=== PATIENT | female | born 1980 | race American Indian/Alaskan Native ===

== ENCOUNTER 2020-10-07 10:46 | Emergency (ER) | payer BC ==
[2020-10-07] MEDS ORDERED: ASPIRIN 325 MG TAB PO ONE (10:55)
--- NOTE | 2020-10-07 10:58 | Event Note ---
ED Screening Note Date of service: 10/07/20 Time: 10:58 ED Screening Note: 39-year-old -[place] female comes in with acute chest pain and elevated blood pressure. This initial assessment/diagnostic orders/clinical plan/treatment(s) is/are subject to change based on patients health status, clinical progression and re- assessment by fellow clinical providers in the ED. Further treatment and workup at subsequent clinical providers discretion. Patient/guardian urged not to elope from the ED as their condition may be serious if not clinically assessed and managed. Initial orders include: Chest pain protocol initiated.
--- NOTE | 2020-10-07 11:20 | Emergency Department Report ---
ED Chest Pain HPI - General Chief Complaint: Chest Pain Stated Complaint: HBP/CHEST PAIN Time Seen by Provider: 10/07/20 11:06 Source: patient Mode of arrival: Ambulatory Limitations: No Limitations - History of Present Illness Initial Comments: 39-year-old female, history of hypertension, presents to ED with elevated blood pressure. Patient states she was diagnosed with hypertension following the of her son 4 years ago. Patient states she was given medication at that time, has not followed up with any physicians since. Has not been on any antihypertensives since 4 years ago. Patient states on yesterday she had a headache along with some chest pain, so she took her blood pressure at home. Patient reports highest SBP was in the 180s. Patient states she had a headache at that time, which is currently resolved. Denies any dizziness, nausea, vomiting. Patient reports some chest tightening, states she is unsure if it may have been due to her anxiety. Patient denies any radiation of pain, shortness of breath, diaphoresis. Patient denies any family history of CAD. Patient denies any tobacco use. MD Complaint: chest pain -: days(s) (2) Onset: during rest Pain Location: substernal Pain Radiation: none Severity: moderate Quality: tightness Consistency: intermittent Improves With: nothing Worsens With: nothing re: denies: nausea, vomting, diaphoresis, dyspnea Other Symptoms: denies: cough, fever, leg swelling - Related Data Previous Rx's Medication Instructions Recorded Last Taken Type hydroCHLOROthiazide [HCTZ] 25 mg PO QDAY #30 tablet 10/07/20 Unknown Rx Allergies Allergy/AdvReac Type Severity Reaction Status Date / Time pollen extracts Allergy Unknown Verified 10/07/20 10:49 Heart Score - HEART Score History: Slightly suspicious EKG: Normal Age: < 45 Risk factors: 1-2 risk factors Troponin: < normal limit HEART Score: 1 ED Review of Systems ROS: Stated complaint: HBP/CHEST PAIN Other details as noted in HPI Comment: All other systems reviewed and negative Constitutional: denies: chills, fever Respiratory: denies: cough, shortness of breath Cardiovascular: chest pain Gastrointestinal: denies: nausea, vomiting Musculoskeletal: other (Denies leg pain or swelling) Neurological: headache. denies: weakness, numbness, vertigo ED Past Medical Hx - Past Medical History Previous Medical History?: Yes Hx Hypertension: Yes - Surgical History Past Surgical History?: Yes Hx Breast Surgery: Yes (Reduction) Additional Surgical History: x 1, - Medications Home Medications: Home Medications Medication Instructions Recorded Confirmed Last Taken Type hydroCHLOROthiazide [HCTZ] 25 mg PO QDAY #30 tablet 10/07/20 Unknown Rx ED Physical Exam - General Limitations: No Limitations General appearance: alert, in no apparent distress, obese - Head Head exam: Present: atraumatic, normocephalic - Eye Eye exam: Present: normal appearance, EOMI - ENT ENT exam: Present: mucous membranes moist - Neck Neck exam: Present: normal inspection - Respiratory Respiratory exam: Present: normal lung sounds bilaterally. Absent: respiratory distress - Cardiovascular Cardiovascular Exam: Present: normal rhythm, tachycardia - GI/Abdominal GI/Abdominal exam: Present: soft. Absent: distended, tenderness - Extremities Exam Extremities exam: Present: normal inspection. Absent: pedal edema, calf tenderness - Neurological Exam Neurological exam: Present: alert, oriented X3, CN II-XII intact. Absent: motor sensory deficit - Psychiatric Psychiatric exam: Present: normal affect, normal mood - Skin Skin exam: Present: warm, dry, intact, normal color ED Course Vital Signs 10/07/20 10/07/20 10/07/20 11:08 11:09 11:15 Pulse Rate 124 H 122 H 119 H Respiratory 16 13 14 Rate Blood Pressure 212/126 Blood Pressure 224/114 [Left] O2 Sat by Pulse 99 98 98 Oximetry 10/07/20 10/07/20 10/07/20 11:30 12:00 12:46 Pulse Rate 102 H 92 H Respiratory 15 11 L Rate Blood Pressure 212/126 169/116 165/94 Blood Pressure [Left] O2 Sat by Pulse 99 97 100 Oximetry 10/07/20 10/07/20 10/07/20 13:30 14:00 14:45 Pulse Rate 83 92 H 92 H Respiratory 11 L 11 L 15 Rate Blood Pressure 157/104 143/107 172/117 Blood Pressure [Left] O2 Sat by Pulse 100 99 98 Oximetry 10/07/20 15:15 Pulse Rate Respiratory Rate Blood Pressure 154/100 Blood Pressure [Left] O2 Sat by Pulse 97 Oximetry ED Medical Decision Making - Lab Data Result diagrams: 10/07/20 11:03 10/07/20 11:03 - EKG Data -: EKG Interpreted by Me EKG shows normal: sinus rhythm, axis, intervals, QRS complexes, ST-T waves Rate: tachycardia (rate 134) - EKG Data Interpretation: no acute changes - Radiology Data Radiology results: report reviewed, image reviewed - Medical Decision Making 39-year-old female, history of hypertension, noncompliant with medication, presents to ED with uncontrolled hypertension and chest pain. Patient given IV labetalol which did improve patient's blood pressure. Patient reported some chest tightness, was unclear if it was possibly secondary to her anxiety. EKG showed no acute ST changes. D-dimer was normal. Troponin negative x2. Chest x-ray unremarkable. Patient reported having a headache on yesterday, but states that has resolved. Patient has no neuro deficits on exam. She is currently feeling much better at this time. Feels comfortable with discharge home. Patient info faxed to [facility] for urgent cardiology follow-up. Return precautions given. - Differential Diagnosis Hypertensive emergency, ACS, PE Critical Care Time: Yes Critical care time in (mins) excluding proc time.: 35 Critical care attestation.: If time is entered above; I have spent that time in minutes in the direct care of this critically ill patient, excluding procedure time. Critical Care Time: 35 min ED Disposition Clinical Impression: Chest pain, Hypokalemia, Hypertensive urgency Disposition: DC- TO HOME OR SELFCARE Is pt being admited?: No Condition: Stable Instructions: Hypokalemia, Nonspecific Chest Pain, Adult, Hypertension, Adult, [id number], Chest Pain (ED) Prescriptions: hydroCHLOROthiazide [HCTZ] 25 mg PO QDAY #30 tablet Referrals: MATT GAGE MD [Primary Care Provider] - 3-5 Days [facility] [Provider Group] - 3-5 Days PATEL BULLARD MD [Staff Physician] - 3-5 Days Forms: Work/School Release Form(ED) Time of Disposition: 14:50
[2020-10-07 11:48] LABS: Basophils # (Auto) 0.1 K/mm3 (0.0-0.1); Basophils % (Auto) 0.8 % (0.0-1.8); Eosinophils # (Auto) 0.1 K/mm3 (0.0-0.4); Eosinophils % (Auto) 0.7 % (0.0-4.3); Hematocrit 38.5 % (30.3-42.9); Hemoglobin 12.5 gm/dl (10.1-14.3); Lymphocytes # (Auto) 3.3 K/mm3 (1.2-5.4); Lymphocytes % (Auto) 26.3 % (13.4-35.0); Mean Corpuscular HGB Conc 32 % (30-34); Mean Corpuscular Volume 79 fl (79-97); Monocytes # (Auto) 0.8 K/mm3 (0.0-0.8); Monocytes % (Auto) 6.4 % (0.0-7.3); Platelet Count 375 K/mm3 (140-440); Red Blood Count 4.89 M/mm3 (3.65-5.03); Red Cell Distribution Width 16.4 % (13.2-15.2)
[2020-10-07 11:57] LABS: INR 0.94 (0.87-1.13)
[2020-10-07 11:58] LABS: Partial Thromboplastin Time 28.5 Sec. (24.2-36.6)
[2020-10-07 12:08] LABS: Alanine Aminotransferase 21 units/L (7-56); Albumin 4.4 g/dL (3.9-5); BUN/Creatinine Ratio 8; Blood Urea Nitrogen 8 mg/dL (7-17); Calcium 9.2 mg/dL (8.4-10.2); Hemolysis Index 6
--- NOTE | 2020-10-07 12:26 | XRay Report ---
CHEST 1 VIEW INDICATION / CLINICAL INFORMATION: Chest Pain. COMPARISON: None available. FINDINGS: SUPPORT DEVICES: None. HEART / MEDIASTINUM: No significant abnormality. LUNGS / PLEURA: No significant pulmonary or pleural abnormality. No pneumothorax. ADDITIONAL FINDINGS: No significant additional findings. IMPRESSION: 1. No acute findings. Signer Name: Alma Isbell MD Signed: 10/07/2020 12:22 PM Workstation Name: [id number]
[2020-10-07] MEDS ORDERED: POTASSIUM CHLORIDE ER 20 MEQ TAB PO ONE (12:29)
[2020-10-07 13:15] LABS: Bilirubin,Urine NEG (Negative); Blood,Urine NEG (Negative); Color,Urine Straw (Yellow); Mucus,Urine FEW /HPF; Urobilinogen,Urine < 2.0 mg/dL (<2.0)
[2020-10-07 13:34] LABS: Amphetamine Screen,Urine Negative; Benzodiazepines Screen,Urine Negative; Cocaine Screen,Urine Negative; Methadone Screen,Urine Negative; Opiate Screen,Urine Negative
[2020-10-07 13:49] LABS: Cannabinoid Screen,Urine Positive
[2020-10-07 15:25] VITALS: BP 154/100
== END 2020-10-07 15:40 | disposition home or self-care (01) ==
LOC: ED 10:46
DX: E87.6 Hypokalemia (principal); I16.0 Hypertensive urgency; R07.89 Other chest pain; Z79.899 Other long term (current) drug therapy
CPT/HCPCS: 36415; 71045; 80053; 80307; 81001; 83690; 84484; 84703; 85025; 85379; 85610; 85730; 93005; 96374